=== PATIENT | female | born 1940 | race Caucasian/White ===

== ENCOUNTER → 2018-05-02 17:03 | Outpatient (CLI) | payer MEDICARE, SELFPAY | PROVIDERS: Visit Provider Physician Assistant | DX: N30.00 Acute cystitis without hematuria (principal) | CPT/HCPCS: 87086 ==

== ENCOUNTER 2022-08-23 17:40 | Emergency (ER) | payer MEDICARE, SELFPAY ==
[2022-08-23] VITALS (8 sets, daily range): BP systolic 170–188; BP diastolic 84–91; PULSE 57–64; RESP 18–27; TEMP 36.6; O2SAT 96–98; BMI 22.6
--- NOTE | 2022-08-23 18:01 | DI.RAD.S_ITS ---
PROCEDURE: XR SHOULDER LT MIN 2V INDICATIONS: fall/pain TECHNIQUE: 3 views of the shoulder were acquired. COMPARISON: None. FINDINGS: Bones: No displaced fractures or dislocations. No suspicious bony lesions. Visualized ribs appear intact. [id number] degenerative changes. Soft tissues: No suspicious soft tissue calcifications. IMPRESSION: No acute radiographic abnormality. If there is high concern for occult injury, consider repeat radiography or cross-sectional imaging. Dictated by: Jose Francisco Pitts M.D. on 08/23/2022 at 19:11 Approved by: Jose Francisco Pitts M.D. on 08/23/2022 at 19:12
--- NOTE | 2022-08-23 18:01 | DI.RAD.S_ITS ---
PROCEDURE: XR RIBS LT MIN 3V W CXR1V INDICATIONS: ribs/chest pain TECHNIQUE: Three views of the left ribs were acquired, along with a single view chest. COMPARISON: None. FINDINGS: Surgical changes and devices: None. Bones and chest wall: No displaced rib injury by radiography. There might be a nondisplaced fracture of the left 7th rib. There might be old right rib deformities, most notably on the 8th rib. Lungs and pleura: No pleural effusions or pneumothorax. Lungs appear clear. Mediastinum: Mediastinal contours appear normal. Heart size is normal. IMPRESSION: Possible nondisplaced fracture of the left 7th rib. Possible old right rib deformities. No definite pneumothorax on these limited views. Correlate with point tenderness. Dictated by: Jose Francisco Pitts M.D. on 08/23/2022 at 19:12 Approved by: Jose Francisco Pitts M.D. on 08/23/2022 at 19:15
[2022-08-23 18:39] LABS: Add Manual Diff / Slide Review NO; Basophils Absolute Auto 0 /uL (0-100); Basophils Percent Auto 0.3 % (0-2); Eosinophils Absolute Auto 200 /uL (0-450); Eosinophils Percent Auto 2.4 % (2-4); Hematocrit 36.7 % (36-46); Hemoglobin 12.8 g/dL (12.0-16.0); Lymphocytes Absolute Auto 1000 /uL (1100-4500); Mean Corpuscular Hemoglobin 34.4 PG (26-34); Mean Corpuscular Volume 98.3 fL (80-100); Monocytes Absolute Auto 400 /uL (0-900); Monocytes Percent Auto 5.4 % (3-14); Neutrophils Absolute Auto 5900 /uL (1500-7000); Neutrophils Percent Auto 78.9 % (50-75); Platelet Count 161 X10^3/uL (150-400); Red Blood Cell Count 3.73 X10^6/uL (4.0-5.2); Red Cell Distribution Width 13.1 % (11.6-14.8); White Blood Cell Count 7.5 X10^3/uL (4.5-11.0)
--- NOTE | 2022-08-23 18:45 | ED_ITS ---
HPI - Chest Pain General Chief Complaint: Chest Pain Stated Complaint: fall,chest pain rt side Time Seen by Provider: 08/23/22 18:22 Source: patient Mode of arrival: Ambulatory Limitations: no limitations History of Present Illness HPI narrative: Patient is a 81-year-old female with history of takotsubo presenting today with left-sided chest pain. She said it started after she tried to jump off a boat she grabs something with her left hand and since then she has had some left- sided chest pain. Hurts to touch hurts to breathe and move. She denies any other injury no head injury no loss of consciousness. She denies shortness of breath although it hurts on the left side. Related Data Previous Rx's Medication Instructions Recorded hydrocodone 5 mg-acetaminophen 325 1 tab PO Q6H PRN pain #10 tabs 08/23/22 mg tablet Allergies Allergy/AdvReac Type Severity Reaction Status Date / Time No Known Drug Allergies Allergy Verified 05/02/18 16:00 Review of Systems Review of Systems Narrative: GENERAL: Denies chills, fatigue, malaise, fever, sweats, travel HEENT: Denies sinus pain, ear pain, sore throat, difficulty swallowing, neck pain RESPIRATORY: Denies dyspnea, cough, wheezing, hemoptysis, sputum. CARDIOVASCULAR: See HP GASTROINTESTINAL: Denies nausea, vomiting, abdominal pain, diarrhea, constipation, melena. : Denies dysuria, frequency, incontinence, hematuria, urinary retention, flank pain. MUSCULOSKELETAL: Denies weakness, joint pain, or bony pain SKIN: No rash, no erythema, no pruritus NEUROLOGIC: Denies weakness, dizziness, headache, numbness, change in speech, confusion PSYCHIATRIC: No concerning psychosocial issues. 12 point review of systems is negative except for those stated above and HPI Patient History Social History Smoking Status: Former smoker Smoking Status: Former smoker alcohol intake frequency: 0-2 drinks per day Substance Use Type: does not use Exam Initial Vital Signs Initial Vital Signs: Vital Signs Temperature 98 F 08/23/22 17:54 Pulse Rate 64 08/23/22 17:54 Respiratory Rate 18 08/23/22 17:54 Blood Pressure 187/91 H 08/23/22 17:54 Pulse Oximetry 98 08/23/22 17:54 Oxygen Delivery Method 08/23/22 17:54 GENERAL: Alert pleasant 81-year-old female and in no acute distress. HEENT: Head atraumatic,EOMI, pupils reactive, face symmetric, moist mucous membranes CARDIOVASCULAR: Regular rate and rhythm without murmurs, rubs or gallops. Tender to touch on left side no contusion or bruising no paradoxical movement RESPIRATORY: Breath sounds equal bilaterally, no wheezes rales or rhonchi. ABDOMEN: Soft, nontender. Normoactive bowel sounds all 4 quadrants. No guarding or rebound. EXTREMITIES: Normal range of motion, no clubbing or edema. Neurovascularly intact NEUROLOGICAL: Alert and oriented x4.Normal gait and speech SKIN: Warm, dry, no laceration, no petechiae, no rashes or lesions. Course Orders Ordered: ED Orders 08/23/22 18:01 XR ribs LT min 3V w CXR1V Stat XR shoulder LT min 2V Stat EKG-12 Lead Stat 08/23/22 18:23 Complete Blood Count AUTO DIFF Stat Comprehensive Metabolic Panel Stat Lipase Stat Magnesium Stat Troponin & CK Cardiac Panel Stat Discontinued Medications Hydrocodone Bitart/Acetaminophen (Hydrocodone/Acet 5/325 Prepack) 1 bottle MISC SEEINSTR ONE Stop: 08/23/22 20:15 Last Admin: 08/23/22 20:30 Dose: 1 bottle Documented By: NR Vital Signs Vital signs: Vital Signs - 8 hr 08/23/22 17:54 08/23/22 18:27 08/23/22 18:28 Temperature 98 F Pulse Rate 64 62 60 Respiratory Rate 18 20 Blood Pressure 187/91 H Pulse Oximetry 98 97 96 Oxygen Delivery Method Room Air 08/23/22 18:28 08/23/22 18:30 08/23/22 18:30 Temperature Pulse Rate 62 Respiratory Rate 24 Blood Pressure 188/87 H 179/88 H Pulse Oximetry 96 Oxygen Delivery Method 08/23/22 19:00 08/23/22 19:30 08/23/22 19:40 Temperature Pulse Rate 58 L 60 59 L Respiratory Rate 26 H 27 H 26 H Blood Pressure Pulse Oximetry 97 97 97 Oxygen Delivery Method 08/23/22 19:40 08/23/22 20:00 08/23/22 20:00 Temperature Pulse Rate 57 L Respiratory Rate 23 Blood Pressure 180/88 H 170/84 H Pulse Oximetry 97 Oxygen Delivery Method MDM - Chest Pain Lab Data Result diagrams: 08/23/22 18:23 08/23/22 18:23 Labs: Lab Results 08/23/22 08/23/22 Range/Units 18:23 18:23 WBC 7.5 (4.5-11.0) X10^3/uL RBC 3.73 L (4.0-5.2) X10^6/uL Hgb 12.8 (12.0-16.0) g/dL Hct 36.7 (36-46) % MCV 98.3 (80-100) fL MCH 34.4 H (26-34) PG MCHC 35.0 (30-36) % RDW 13.1 (11.6-14.8) % Plt Count 161 (150-400) X10^3/uL Neut % (Auto) 78.9 H (50-75) % Lymph % (Auto) 13.0 L (25-40) % Kleberg % (Auto) 5.4 (3-14) % Eos % (Auto) 2.4 (2-4) % Baso % (Auto) 0.3 (0-2) % Neut # (Auto) 5900 (9842-0487) /uL Lymph # (Auto) 1000 L (4835-7028) /uL Kleberg # (Auto) 400 (0-900) /uL Eos # (Auto) 200 (0-450) /uL Baso # (Auto) 0 (0-100) /uL Sodium 140 (137-145) mmol/L Potassium 4.0 (3.4-5.1) mmol/L Chloride 106 (98-107) mmol/L Carbon Dioxide 27 (22-32) mmol/L BUN 28 H (7-17) mg/dL Creatinine 1.00 (0.52-1.04) mg/dL Estimated GFR 57 L (>60) mL/min BUN/Creatinine Ratio 28.0 H (6-22) Glucose 112 H (80-110) mg/dL Calcium 9.0 (8.4-10.2) mg/dL Magnesium 2.3 (1.6-2.3) mg/dL Total Bilirubin 0.8 (0.2-1.3) mg/dL AST 32 (14-36) IU/L ALT 19 (<35) IU/L Alkaline Phosphatase 44 (38-126) U/L Total Creatine Kinase 123 (30-135) U/L CK-MB (CK-2) 2.12 (<2.37) ng/mL CK-MB (CK-2) Rel Index 1.7 (1.5-5.0) % Troponin I < 0.012 (0.01-0.034) ng/mL Total Protein 6.7 (6.3-8.2) g/dL Albumin 4.3 (3.5-5.0) g/dL Globulin 2.4 (1.7-4.1) g/dL Albumin/Globulin Ratio 1.8 (1.0-2.8) Lipase 136 (23-300) U/L Imaging Data Chest x-ray: Radiologist's Impression: XRay Report Signed Patient: Indira Healy MR#: [id number] : 1940 Acct:[id number] Age/Sex: 81 / F Date of Service: 08/23/22 Loc: ED Accession Number: [id number] ?? Procedure: XR ribs LT min 3V w CXR1V Ordering Provider: Abdirahman Carr MD PROCEDURE:? XR RIBS LT MIN 3V W CXR1V ? INDICATIONS:? ribs/chest pain ? TECHNIQUE:? Three views of the left ribs were acquired, along with a single view chest.? ? COMPARISON:? None. ? FINDINGS:? ? Surgical changes and devices:? None.? ? Bones and chest wall:? No displaced rib injury by radiography.? There might be a nondisplaced fracture of the left 7th rib.? There might be old right rib deformities, most notably on the 8th rib. ? Lungs and pleura:? No pleural effusions or pneumothorax.? Lungs appear clear.? ? Mediastinum:? Mediastinal contours appear normal.? Heart size is normal.? ? IMPRESSION:? Possible nondisplaced fracture of the left 7th rib.? Possible old right rib deformities.? No definite pneumothorax on these limited views.? Correlate with point tenderness.? ? ? Dictated by: Jose Francisco Pitts M.D. on 08/23/2022 at 19:12 ? ? Extremity x-ray #1: Radiologist's Impression: nt: Indira Healy MR#: [id number] : 1940 Acct:[id number] Age/Sex: 81 / F Date of Service: 08/23/22 Loc: ED Accession Number: [id number] ?? Procedure: XR shoulder LT min 2V Ordering Provider: Abdirahman Carr MD PROCEDURE:? XR SHOULDER LT MIN 2V ? INDICATIONS:? fall/pain ? TECHNIQUE:? 3 views of the shoulder were acquired.? ? COMPARISON:? None. ? FINDINGS:? ? Bones:? No displaced fractures or dislocations.? No suspicious bony lesions.? Visualized ribs appear intact.? Serd-sg-dltjajmo degenerative changes.? ? Soft tissues:? No suspicious soft tissue calcifications.? ? IMPRESSION:? No acute radiographic abnormality.? If there is high concern for occult injury, consider repeat radiography or cross-sectional imaging. ? ? Dictated by: Jose Francisco Pitts M.D. on 08/23/2022 at 19:11? ECG Data Interpretation: Normal sinus rhythm rate 63 CA interval 178 QRS [address] changes T-wave inversion noted in lead 3, no priors MDM Narrative Medical decision making narrative: The patient was stained a chest injury today. The pain is reproducible palpation and movement. Cardiac workup is essentially negative. Chest x-ray does show probable nondisplaced 7th rib fracture. She is given incentive spirometer by Respiratory therapy pain medications. All questions have been answered. Discharge Plan Departure Patient Disposition: Home Clinical Impression: Fracture of rib Instructions: DI for Rib Fracture Activity Restrictions/Additional Instructions: *You have been diagnosed with rib fracture *What to do: At this time increase activity as tolerated. May use pillow to help splint with pain. Use incentive spirometer 5-10 times an hour while awake as directed by respiratory therapy *Continue to take medications as directed --> [place] 1-2 tablets every 6 hours if needed for severe pain *Follow up with your primary care provider in 2-3 days or call [phone] *Return to ER if you should have increasing pain shortness of breath fever confusion or any new, worsening or concerning symptoms CONTROLLED SUBSTANCE DISCHARGE (Narcotoic/benzodiazepine/Flexeril/Phenergan) 1. You have been prescribed narcotic medications, it does have acetaminophen/Tylenol/paracetamol in it, DO NOT TAKE MORE THAN 4,00mg in 24 hours of Tylenol. TRAMADOL DOES NOT CONTAIN TYLENOL 2. Please understand that we cannot provide further refills of narcotics, benzodiazepines or controlled substances through the ED and her pain management will need to be through your provider. 3. While on these medications you cannot drive or operate heavy machinery. 4. You cannot sign legal documents or perform any duties such as this. 5. As long as you're taking opiate pain medications he should also be taking a stool softener such as Colace, Dulcolax, MiraLAX or prune juice, to help avoid constipation. Prescriptions: New hydrocodone-acetaminophen 5-325 mg tablet 1 tab PO Q6H PRN (Reason: pain) Qty: 10 0RF Visit Report Forms: Patient Portal/API
[2022-08-23 18:48] LABS: Alanine Aminotransferase 19 IU/L (<35); Albumin 4.3 g/dL (3.5-5.0); Albumin Globulin Ratio 1.8 (1.0-2.8); Alkaline Phosphatase 44 U/L (38-126); Aspartate Aminotransferase 32 IU/L (14-36); Bilirubin Total 0.8 mg/dL (0.2-1.3); Blood Urea Nitrogen 28 mg/dL (7-17); Carbon Dioxide 27 mmol/L (22-32); Chloride 106 mmol/L (98-107); Creatine Kinase 123 U/L (30-135); Estimated Glomerular Filt Rate 57 mL/min (>60); Globulin 2.4 g/dL (1.7-4.1); Glucose 112 mg/dL (80-110); HEMOLYSIS 21 (0-50); Lipase 136 U/L (23-300); Magnesium 2.3 mg/dL (1.6-2.3); Sodium 140 mmol/L (137-145); Total Protein 6.7 g/dL (6.3-8.2)
[2022-08-23 18:59] LABS: Troponin I < 0.012 ng/mL (0.01-0.034)
[2022-08-23 19:03] LABS: CKMB % Relative Index 1.7 % (1.5-5.0); Creatine Kinase MB 2.12 ng/mL (<2.37)
[2022-08-23] MEDS: HYDROCODONE/ACET 5/325 PREPACK 1 BOTTLE MISC (20:30)
== END 2022-08-23 20:37 | disposition home or self-care (01) ==
PROVIDERS: Emergency Medicine; Emergency Provider Emergency Medicine
DX: S22.32XA Fracture of one rib, left side, initial encounter for closed fracture (principal); R07.9 Chest pain, unspecified; W19.XXXA Unspecified fall, initial encounter
CPT/HCPCS: 36415; 71101; 73030; 80053; 82550; 82553; 83690; 83735; 84484; 85025; 93005; 99284